=== PATIENT | male | born 1955 | race Caucasian/White ===

== ENCOUNTER 2018-12-07 07:49 | Day surgery (SDC) | payer OTHER ==
[2018-12-06 10:29] VITALS: Ht 165.1 cm; Wt 63.2 kg
[~2018-12-07] VITALS: Ht 165.1 cm; Wt 63.2 kg
[2018-12-07] VITALS (16 sets, daily range): BP systolic 99–144; BP diastolic 55–76; PULSE 58–74; RESP 14–23
--- NOTE | 2018-12-07 09:02 | PREAC ---
Date/Time of Note Date/Time of Note DATE: 12/07/18 TIME: 09:00 Anesthesia Eval and Record Evaluation Time Pre-Procedure Interview DATE: 12/07/18 TIME: 09:00 Age 63 Sex male NPO: 8 hrs Preoperative diagnosis left 2nd matatarsalgia Planned procedure left 2nd metatarsal osteotomy Past Medical History Past Medical History: Includes Pulm: Smoking Hx (2 days ago) Surgery & Anesthesia Issues No known issue Meds Anticoagulation: No Beta Christian within 24 hr: No Reason Beta Christian not given: Pt. not on B-Christian No Active Prescriptions or Reported Meds Meds reviewed: Yes Allergies Coded Allergies: No Known Allergy (Unverified , 12/06/18) Allergies Reviewed: Yes Labs/Studies Labs Reviewed: Reviewed by anesthesiologist test: N/A Studies: ECG (sr), CXR (nl) Pre-procedure Exam Last vitals Vital Signs Date Temp Pulse Resp B/P (MAP) Pulse Ox O2 O2 Flow FiO2 Time Delivery Rate 12/07/18 97.9 58 16 99/55 (70) 100 Room Air 08:28 Airway: Adequate mouth opening Mallampati: Mallampati I Teeth: Normal Lung: Normal Heart: Normal ASA Physical Status ASA physical status: 2 Emergency: None Planned Anesthetic General/MAC: LMA, TIVA Planned Pain Management Single shot nerve block, Parenteral pain med Pre-operative Attestations Prior to commencing anesthesia and surgery, the patient was re-evaluated, there was verification of: *The patient's identity *The results of appropriate recent lab work and preoperative vital signs *The above evaluation not changing prior to induction *Anesthetic plan, risk benefits, alternative and complications discussed with patient/family; questions answered; patient/family understands, accepts and wishes to proceed. MENA PULIDO MD Dec 07, 2018 09:02
--- NOTE | 2018-12-07 09:36 | HPN ---
Date/Time of Note Date/Time of Note DATE: 12/07/18 TIME: 09:36 Interval H&P Admission Note Pt. seen H&P reviewed: No system changes LORRI KIM DPM Dec 07, 2018 09:36
[2018-12-07] MEDS ORDERED: BUPIVACAINE 0.5% (SDV) 30 ML INJ ONE (09:37)
[2018-12-07] MEDS ORDERED: LIDOCAINE 1%/EPI (1:100,000) (MDV) 20 ML ONE (09:37)
[2018-12-07] MEDS ORDERED: PROPOFOL 20 ML ONE (09:58)
[2018-12-07] MEDS ORDERED: MIDAZOLAM 1 MG/ML 2 ML INJ ONE (09:58)
[2018-12-07] MEDS ORDERED: CEFAZOLIN 1 GM INJ ONE (10:03)
[2018-12-07] MEDS ORDERED: KETOROLAC 30 MG INJ ONE (10:08)
[2018-12-07] MEDS ORDERED: METOCLOPRAMIDE 10 MG INJ ONE (10:08)
[2018-12-07] MEDS ORDERED: ONDANSETRON 4 MG INJ ONE (10:08)
[2018-12-07] MEDS ORDERED: EPHEDrine SULFATE 50 MG/5 ML SYG ONE (10:17)
[2018-12-07] MEDS ORDERED: LIDOCAINE 1% (MPF) 30 ML INJ ONE (10:21)
--- NOTE | 2018-12-07 10:54 | OPR ---
Date/Time of Note Date/Time of Note DATE: 12/07/18 TIME: 10:51 Operative Report Procedure Date: Dec 07, 2018 Preoperative Diagnosis Metatarsalgia left foot Postoperative Diagnosis same Operation/Procedure Performed left 2nd met osteotomy Surgeon Dr. Restrepo signature line [employer] NONE Anesthesia Type: MAC Estimated Blood Loss: minimal Transfusion none Specimen NONE Grafts/Implants none Tubes/Drains NONE Complications none Pt Condition Post Procedure: stable Disposition: PACU Procedure Description LEFT 2ND MET OSTEOTOMY LORRI KIM DPM Dec 07, 2018 10:54
[2018-12-07] MEDS ORDERED: HYDR-3980 PO (10:58)
--- NOTE | 2018-12-07 11:43 | PAC ---
Date/Time of Note Date/Time of Note DATE: 12/07/18 TIME: 11:42 Post-Anesthesia Notes Post-Anesthesia Note Last documented vital signs Vital Signs Date Temp Pulse Resp B/P (MAP) Pulse Ox O2 O2 Flow FiO2 Time Delivery Rate 12/07/18 98.6 72 20 139/65 96 Room Air 11:21 (89) 12/07/18 8.0 11:01 12/07/18 98.8 10:56 Activity: WNL Respiratory function: WNL Cardiovascular function: WNL Mental status: Baseline Pain reasonably controlled: Yes Hydration appropriate: Yes Nausea/Vomiting absent: No MENA PULIDO MD Dec 07, 2018 11:43
--- NOTE | 2018-12-07 12:28 | OPR ---
DATE OF OPERATION: 12/07/2018 PREOPERATIVE DIAGNOSIS: Left foot metatarsalgia. POSTOPERATIVE DIAGNOSIS: Left foot metatarsalgia. OPERATION PERFORMED: Left second metatarsal osteotomy. ANESTHESIA: MAC. HEMOSTASIS: None. INJECTABLES: Preoperatively: 10 mL of 1% lidocaine with epinephrine. Intraoperatively: 0.5% Marcaine plain. PATHOLOGY: None. MATERIALS USED: None. COMPLICATIONS: None. ESTIMATED BLOOD LOSS: Minimal. CONDITION TO RECOVERY: Stable. SURGEON: Dr. Siri DPM POTTER: Dr. Kelley DPM. DESCRIPTION OF PROCEDURE IN DETAIL: The patient was brought into the operating room and placed on e operating room table in a supine position. The anesthesiologist proceeded to place the patient und er anesthesia. IV antibiotics were also provided. The left foot and lower extremity was scrubbed, p repped and draped in the usual aseptic manner. Lidocaine 10 mL of 1% with epinephrine was used for i njection. Using fluoroscopy the left second metatarsal neck was identified. Using a #11 blade, a st ab incision of 3 mm was made over the dorsal left second metatarsal neck laterally. Then, using a sh aver bur, a shaver bur was introduced through that stab incision and osteotomy was performed from lat eral to medial of the left second metatarsal neck area perpendicular to the bone. It was noted by fl uoroscopy that the osteotomy was performed. Then, the metatarsal head was pushed dorsally. It was n oted that there was no more prominence of the metatarsal head plantarly. The surgical site was flush ed with antibiotic impregnated saline solution and the skin was reapproximated utilizing 4-0 nylon in simple interrupted stitch fashion. Marcaine plain 10 mL of 0.5% was used to inject the surgery site for postop pain relief. The foot was cleaned with Betadine solution. The foot was dressed using 4 x 4 gauze, Kerlix and Coban. The patient was put in a postop shoe. Patient tolerated the surgery an d anesthesia well and was returned to the postanesthesia care unit with all vital signs stable and in tact. Dictated By: LORRI ANDERSON/MIGUEL ANGEL Conf#: [id number] DID#: [id number]
== END 2018-12-07 13:06 | disposition home or self-care (01) ==
LOC: SDS 07:49
PROVIDERS: ATTEND Podiatrist Foot Surgery
DX: M77.42 Metatarsalgia, left foot (principal)
CPT/HCPCS: 28308; 71045; 73630; J0690; J1885; J2250; J2405; J2765